=== PATIENT | male | born 1940 | race Caucasian/White ===

== ENCOUNTER 2023-07-08 07:33 | Observation (INO) ==
[2023-07-08 08:18] LABS: Rapid COVID-19 Molecular Undetected (Undetected)
[2023-07-08] MEDS ORDERED: Scopolamine 1 mg/72hr PATCH ONE (08:18)
[2023-07-08] MEDS ORDERED: Gentamicin ADULT 40 MG/ML VIAL (2 ML VIAL = 80 MG) ONE (08:18)
[2023-07-08] MEDS ORDERED: Ampicillin IV 1 GM VIAL ONE (08:19)
[2023-07-08] MEDS: Scopolamine 1 mg/72hr PATCH TRANSDERM ONE (08:23)
[2023-07-08] MEDS ORDERED: Famotidine IV 10 MG/ML 2 ml VIAL (20 mg) ONE (09:04)
[2023-07-08] MEDS: Ampicillin ADVAN 2 GM in NS 0.9% 100 ML 100 ML IVPB ONE (09:12)
[2023-07-08] MEDS ORDERED: Ondansetron 4 mg VIAL 2 MG/ML 2 ml VIAL IV PRN (09:18)
[2023-07-08] MEDS ORDERED: Propofol 10 MG/ML 20 ML BTL ONE (09:43)
[2023-07-08] MEDS ORDERED: fentaNYL 100 mcg/2 ml 50 MCG/ML VIAL ONE (09:44)
[2023-07-08] MEDS ORDERED: Lidocaine 2% PF 5 ML VIAL ONE (09:44)
[2023-07-08] MEDS ORDERED: Ondansetron 4 mg VIAL 2 MG/ML 2 ml VIAL ONE (10:48)
[2023-07-08] MEDS ORDERED: Dexamethasone IV 4 MG/ML VIAL 1 ml VIAL ONE (10:48)
[2023-07-08] MEDS ORDERED: Phenylephrine IV 10 MG/ML 1 ml VIAL ONE (10:56)
[2023-07-08 13:05] LABS: Calcium 8.7 mg/dL (8.6-10.3); Creatinine, Serum 0.84 mg/dL (0.67-1.17); eGFR CKD-EPI 88.2 (>60)
[2023-07-08] MEDS ORDERED: fentaNYL 100 mcg/2 ml 50 MCG/ML VIAL IV PRN (13:13)
[2023-07-08] MEDS ORDERED: Naloxone 0.4 mg VIAL 0.4 mg/ml 1 ml VIAL IV PRN (13:13)
[2023-07-08] MEDS ORDERED: Metoclopramide 5 MG/ML VIAL (10 mg) IV PRN (13:13)
[2023-07-08] MEDS: NS 0.9% 1000 ml BAG 1,000 ML IV SCH (14:25)
[2023-07-08] MEDS: Neomycin/Polym/Bacit TOP OINT 15 GM TOPICAL SCH (15:05)
[2023-07-08] MEDS: Gentamicin ADULT 365 MG in NS 0.9% 100 ml BAG 100 ML IVPB ONE (15:07)
[2023-07-08] MEDS: Lidocaine 2% JELLY 6 ML Topical TOPICAL PRN (16:53)
[2023-07-08 20:25] LABS: Calcium 8.5 mg/dL (8.6-10.3); Creatinine, Serum 1.18 mg/dL (0.67-1.17); Potassium 4.5 mmol/L (3.5-5.0); eGFR CKD-EPI 62.4 (>60)
[2023-07-08] MEDS: Simvastatin 20 mg TAB (NF) PO SCH (20:37)
[2023-07-08] MEDS: Magnesium Hydroxide LIQ 30 ML UDC PO SCH (20:40)
[2023-07-09] MEDS: Lactated Ringers 1000 ml BAG 1,000 ML IV SCH (07:39)
[2023-07-09] MEDS: Buffered Lidocaine 1% SYRIN 1 ml INTRADERM ONE (07:39)
[2023-07-09 10:57] VITALS: BP 104/54
== END 2023-07-09 14:50 | disposition home or self-care (01) ==
LOC: OR 07:33 → SSU 07:33 → UNDODISOB 07-09 13:25
PROVIDERS: ADMIT Urology; ATTEND Urology